=== PATIENT | female | born 1980 | race Caucasian/White ===

== ENCOUNTER → 2020-11-13 15:27 | Outpatient (CLI) | payer BC, SELFPAY ==
--- NOTE | ~2020-11-13 | MM_ITS ---
EXAMINATION: MM screening sabrina BI w lian HISTORY: Screening TECHNIQUE: Craniocaudal and mediolateral oblique 3-D tomosynthesis images were obtained and synthetic 2-D images were generated. CAD analysis was submitted and interpreted. COMPARISON: No prior mammogram is available for comparison at this institution. BREAST PARENCHYMAL COMPOSITION: There are scattered areas of fibroglandular density. FINDINGS: There is no evidence of suspicious mass, calcification, or architectural distortion to sugg est malignancy in either breast. There has been no suspicious interval change. IMPRESSION: 1. No mammographic evidence of malignancy. 2. Recommend routine screening mammography in one year. BI-RADS Category 1: Negative Reviewed, dictated and finalized at location A. COMPLIANCE OFFICER
== END ==
DX: Z12.31 Encounter for screening mammogram for malignant neoplasm of breast (principal)
CPT/HCPCS: 77063; 77067

== ENCOUNTER 2022-02-18 09:45 | Outpatient (CLI) | payer BC, SELFPAY ==
--- NOTE | 2022-02-18 11:00 | NEURO_ITS ---
Impression: # Complains of left lower extremity paresthesia. # Normal nerve conduction study except left peroneal polyphasic response. # No planter syndrome. # Normal nerve conduction study without evidence of fibs, chronic denervation potentials or myotonia. # Clinical correlation recommended; Question of higher involvement. Nerve Conduction Studies Anti Sensory Summary Table Stim Site NR Peak (ms) P-T Amp (?V) Site1 Site2 Delta-P (ms) Dist (cm) Irineo (m/s) Left Sup Fibular Anti Sensory (Ant Lat Mall) 14 cm 3.3 32.1 14 cm Ant Lat Mall 3.3 16.0 48 Left Sural Anti Sensory (Lat Mall) Calf 3.5 39.3 Calf Lat Mall 3.5 16.0 46 Motor Summary Table Stim Site NR Onset (ms) O-P Amp (mV) Site1 Site2 Delta-0 (ms) Dist (cm) Irineo (m/s) Left Lateral Plantar Motor (ADM) Med Mall 3.8 8.8 Left Peroneal Motor (Vastus Med) Ankle 3.6 3.6 Popit Ankle 8.2 37.0 45 Popit 11.8 1.8 Left Tibial Motor (Abd Villaseñor Brev) Ankle 3.9 6.5 Knee Ankle 8.2 40.0 49 Knee 12.1 6.0 F Wave Studies NR F-Lat (ms) L-R F-Lat (ms) Left Peroneal (Mrkrs) (EDB) 49.26 Left Tibial (Mrkrs) (Abd Hallucis) 48.20 EMG Side Muscle Nerve Root Ins Act Fibs Amp Dur Recrt Comment Left AntTibialis Dp Br Fibular L4-5 Nml Nml Nml Nml Nml Left Gastroc Tibial S1-2 Nml Nml Nml Nml Nml Left Fibularis Long Sup Br Fibular L5-S1 Nml Nml Nml Nml Nml Left Flex Dig Long Tibial L5-S2 Nml Nml Nml Nml Nml Left Ext Dig Brev Dp Br Fibular L5, S1 Nml Nml Nml Nml Nml Left QuadratusFem QuadFemoris L4-5, S1 Nml Nml Nml Nml Nml MTDD
== END 2022-02-18 09:46 | disposition home or self-care (01) ==
LOC: ANHNEURO 09:46
PROVIDERS: Visit Provider Nurse Practitioner Adult Health
DX: R20.2 Paresthesia of skin (principal)
CPT/HCPCS: 95886; 95909

== ENCOUNTER 2022-03-14 07:53 | Emergency (ER) | payer BC, SELFPAY ==
[2022-03-14] VITALS (9 sets, daily range): BP systolic 98–121; BP diastolic 72–90; PULSE 67–103; RESP 12–20; TEMP 36.4; O2SAT 95–100
--- NOTE | 2022-03-14 07:57 | ECG_ITS ---
Measurements Intervals [place] Rate: 87 P: 1 VT: 133 QRS: -12 QRSD: 86 T: 8 QT: 389 QTc: 470 Interpretive Statements SINUS RHYTHM DELAYED PRECORDIAL R/S TRANSITION BORDERLINE T WAVE ABNORMALITY- INFERIOR LEADS BORDERLINE ECG Electronically Signed On 03-14-2022 8:15:10 CDT by Mayur Hill D.O.
--- NOTE | 2022-03-14 08:06 | ED.DIZZY ---
HPI - Dizziness General Chief Complaint: Dizziness Stated Complaint: dizzy/lightheaded Time Seen by Provider: 03/14/22 07:54 History of Present Illness HPI Narrative: Patient is a 41-year-old female who presents ER with dizziness. Sudden onset this morning when she woke up. Worse with positional movements. No sweats or nausea or vomiting. Reports some tingling in her fingers. Reports she had something similar few weeks ago that did cause her to fall. Patient is recently postop from a cholecystectomy. No abdominal pain or fevers. No weakness in arm or leg. No slurred speech. Has not had any sinus congestion or sore throat or productive cough. No history of peripheral vertigo. Related Data Allergies Allergy/AdvReac Type Severity Reaction Status Date / Time No Known Allergies Allergy Verified 03/14/22 08:09 Review of Systems Review of Systems: All systems reviewed & are unremarkable except as noted in HPI and below Constitutional: Constitutional: Denies chills, Denies fever(s) and Denies weakness ENT: Reports dizziness, Denies nasal congestion and Denies sore throat Cardiovascular: Cardiovascular: Denies chest pain, Denies rapid heart rate and Denies radiating jaw, neck or arm pain Respiratory: Respiratory: Denies cough and Denies dyspnea Gastrointestinal: Gastrointestinal: Denies abdominal pain, Denies nausea and Denies vomiting Neurologic: Denies headache(s), Denies focal weakness and Denies numbness PMFSH Past Medical History Medical History (Updated 03/14/22 @ 10:53 by Roberto Hall MD) Healthy female adult Surgical History Surgical History (Updated 03/14/22 @ 10:52 by Roberto Hall MD) History of cholecystectomy Exam Narrative: GENERAL: Well-appearing, well-nourished, and in no acute distress. HEAD: Normocephalic, atraumatic. EYES: PERRL and EOMI. ENT: TMs normal bilaterally. CHEST: Clear to auscultation. No respiratory distress. HEART: Regular rate and rhythm. Normal peripheral pulses. ABDOMEN: Soft, nontender, nondistended, normal active bowel sounds. EXTREMITIES: Normal range of motion. No edema. SKIN: Warm, dry, no rash. NEURO: No focal deficits. No upper or lower extremity drift. Normal [id number] testing and finger-nose testing bilaterally. Alert and oriented x3. PSYCH: Normal mood and affect. Course Course Emergency Course: Feels improved with fluids and meclizine. Suspect peripheral vertigo. Discharge home. Vital Signs Vital signs: Vital Signs Temperature 97.5 F L 03/14/22 07:50 Pulse Rate 90 03/14/22 07:50 Respiratory Rate 13 03/14/22 07:50 Blood Pressure 114/89 03/14/22 07:50 Pulse Oximetry 100 03/14/22 07:50 Temperature 97.5 F L 03/14/22 07:50 Pulse Rate 67 03/14/22 09:46 Respiratory Rate 20 03/14/22 09:46 Blood Pressure 102/80 03/14/22 09:46 Pulse Oximetry 100 03/14/22 09:46 MDM - Dizziness Lab Data Result diagrams: 03/14/22 08:06 03/14/22 08:06 Labs: Lab Results 03/14/22 03/14/22 Range/Units 08:06 08:06 WBC 8.0 (4.5-10.0) K/mm3 RBC 4.55 (4.2-5.4) M/mm3 Hgb 13.9 (12.0-15.0) g/dL Hct 41.2 (37.0-47.0) % MCV 90.5 (80-100) fl MCH 30.5 (26-34) pg MCHC 33.7 (32-36) g/dl RDW 13.1 (11.5-14.5) % Plt Count 386 H (150-375) k/mm3 MPV 9.1 (7.4-10.4) fl Immature Gran % (Auto) 0.3 (0-0.5) % Neut % (Auto) 50.6 (45.5-73.1) % Lymph % (Auto) 35.7 (18.3-44.2) % [place] % (Auto) 9.6 H (2.6-8.5) % Eos % (Auto) 3.4 (0-4.4) % Baso % (Auto) 0.4 (0.2-1.2) % Lymph # (Auto) 2.85 (0.9-3.2) K/mm3 [place] # (Auto) 0.8 H (0.1-0.6) K/mm3 Eos # (Auto) 0.3 (0-0.3) K/mm3 Baso # (Auto) 0.0 (0.0-0.1) K/mm3 Abs Immat Gran (auto) 0.02 (0.00-0.031) K/mm3 Absolute Neuts (auto) 4.0 (1.3-6.7) K/mm3 Absolute Nucleated RBC 0.0 (0.0-0.012) K/mm3 Nucleated RBC % 0.0 (0.0-0.2) % Sodium 137 (137-145) mmol/L Potassium 3.4 (3.4-5
[2022-03-14] MEDS: Please add drug allergy info to patient profile. XX (08:10)
[2022-03-14] MEDS: SODIUM CHLORIDE 0.9% IV 1,000 ML 999 ML IV CONT (08:10)
[2022-03-14 08:11] LABS: Basophils Percent Auto 0.4 % (0.2-1.2); Eosinophils Absolute Auto 0.3 K/mm3 (0-0.3); Eosinophils Percent Auto 3.4 % (0-4.4); Hematocrit 41.2 % (37.0-47.0); Hemoglobin 13.9 g/dL (12.0-15.0); Immature Granulocyte Absolute 0.02 K/mm3 (0.00-0.031); Immature Granulocyte Percent A 0.3 % (0-0.5); Lymphocytes Absolute Auto 2.85 K/mm3 (0.9-3.2); Lymphocytes Percent Auto 35.7 % (18.3-44.2); Mean Corpuscular HGB Conc 33.7 g/dl (32-36); Mean Corpuscular Hemoglobin 30.5 pg (26-34); Mean Corpuscular Volume 90.5 fl (80-100); Mean Platelet Volume 9.1 fl (7.4-10.4); Monocytes Absolute Auto 0.8 K/mm3 (0.1-0.6); Monocytes Percent Auto 9.6 % (2.6-8.5); Neutrophils Percent Auto 50.6 % (45.5-73.1); Platelet Count Result 386 k/mm3 (150-375); Red Blood Count 4.55 M/mm3 (4.2-5.4); Red Cell Distribution Width 13.1 % (11.5-14.5)
[2022-03-14] MEDS: MECLIZINE HCL 25 MG TABLET PO (08:11)
[2022-03-14 08:23] LABS: Alanine Aminotransferase 55 U/L (6-35); Albumin Level 3.6 g/dL (3.5-5.1); Alkaline Phosphatase 141 U/L (38-126); Anion Gap 8 mmol/L (8-16); Aspartate Amino Transferase 22 U/L (14-36); Bilirubin,Total 0.5 mg/dL (0.2-1.3); Blood Urea Nitrogen 9 mg/dL (7-17); Calcium 8.9 mg/dL (8.4-10.2); Carbon Dioxide 23 mmol/L (22-30); Chloride 106 mmol/L (98-107); Estimated CRCL calculation 75 ml/min; Estimated Glomerular Filt Rate > 60; Glucose 71 mg/dL (65-110); Potassium 3.4 mmol/L (3.4-5.0); Sodium 137 mmol/L (137-145)
== END 2022-03-14 11:07 | disposition home or self-care (01) ==
PROVIDERS: Emergency Provider Emergency Medicine; PCP Nurse Practitioner Adult Health
DX: R42 Dizziness and giddiness (principal); R94.31 Abnormal electrocardiogram [ECG] [EKG]
CPT/HCPCS: 36415; 80053; 85025; 93005; 96360; 99284; A9270; J7030

== ENCOUNTER 2022-04-15 07:57 | Outpatient (CLI) | payer BC, SELFPAY ==
--- NOTE | 2022-04-15 | ECHO_ITS ---
Patient Info Name: Jennifer Burks Age: 41 years : 1980 Gender: Female Ht: 63 in Wt: 147 lbs BSA: 1.74 m2 HR: 82 bpm BP: 105 / 84 mmHg Heart Rhythm: Sinus Rhythm Technical Quality: Good Exam Date: 04/15/2022 8:27 AM Exam Location: [facility] Pulmonary Patient Status: Outpatient Admit Date: 04/15/2022 Staff Ordering Physician: Rob, Ijeoma BLAIR [employer] Specialist: Natalie Gerardo RDCS Attending Provider: CresencioIjeoma NP Exam Type: CA echo doppler color flow Study Info Indications I31.8 - Other specified diseases of pericardium Complete two-dimensional, color flow and Doppler transthoracic echocardiogram is performed. Summary 1. Complete two-dimensional, color flow and Doppler transthoracic echocardiogram is performed. 2. Normal LV size and wall thickness, normal LV systolic and diastolic function, ejection fraction 60-65%. Global longitudinal strain-19%. Normal RV size and systolic function; right ventricular moderator band-normal variant. No significant valvular abnormality. Trace TR. RVSP 36 mmHg. No significant pericardial effusion. Epicardial fat pad. No definite large and compressive pericardial cyst is seen. May consider cardiac CT or cardiac MRI if clinically warranted. Left Ventricle Left ventricular chamber dimension is normal. Left ventricular systolic function is normal, estimated at 60-65%. There is no increased left ventricular wall thickness. Left ventricular septal wall motion is normal. The left ventricular diastolic function is normal. Right Ventricle Right ventricular chamber dimension is normal. Right ventricular systolic function is normal. Left Atria Left atrial chamber dimension is normal. Right Atria Right atrial chamber dimension is normal. Aortic Valve The aortic valve is trileaflet. There is no aortic valve sclerosis. There is no aortic valve stenosis. There is no aortic valve regurgitation. Pulmonic Valve The pulmonic valve is normal. There is no pulmonic regurgitation. Mitral Valve The mitral valve has normal leaflets. There is no mitral valve regurgitation. Tricuspid Valve The tricuspid valve leaflets are normal. There is trace tricuspid valve regurgitation. No pulmonary hypertension, estimated pulmonary arterial systolic pressure is 36 mmHg. Pericardium/Pleural The pericardium appears epicardial fat pad. Inferior Vena Cava Normal inferior vena cava with >50% collapse upon inspiration consistent with Empty right atrial pressure, 10 mmHg. Aorta The aortic root size at the sinus of Valsalva is normal. The prox ascending aorta size is normal. Left Ventricular Outflow Tract Name Value Normal LVOT 2D LVOT Diameter 2.0 cm LVOT Doppler LVOT Peak Gradient 3 mmHg LVOT Mean Gradient 2 mmHg LVOT VTI 17 cm LVOT VTI/AV VTI Ratio 0.8 LVOT Stroke Volume 52 ml LVOT CO 4.4 l/min LVOT CI 2.5 l/min/m2 Pulmonic Valve -------
== END 2022-04-15 07:58 | disposition home or self-care (01) ==
LOC: ANHCARD 07:59
PROVIDERS: PCP Nurse Practitioner Adult Health; Visit Provider Nurse Practitioner Adult Health
DX: I31.8 Other specified diseases of pericardium (principal)
CPT/HCPCS: 93306

== ENCOUNTER 2022-04-18 14:43 | Emergency (ER) | payer BC, SELFPAY ==
[2022-04-18 14:49] VITALS: BP 116/82; PULSE 79; RESP 16; TEMP 36.9; O2SAT 100
--- NOTE | 2022-04-18 15:00 | ED.EXTPRO ---
HPI - Extremity Problem General Chief complaint: Ear Stated complaint: left ear discomfort Time Seen by Provider: 04/18/22 14:55 Source: patient Mode of arrival: ambulatory Limitations: no limitations History of Present Illness HPI Narrative: Patient presents today complaining of occasional left ear discomfort. She was diagnosed with swimmer's ear 8 days ago and given a prescription for Ciprodex, which she has been using twice a day. States she does not feel like the eardrops are penetrating all the way into her ear canal and continues to have some pressure. She has been applying warm compresses as well as using the drops. Related Data Home Medications Medication Instructions Recorded Confirmed ciprofloxacin 0.3 %-dexamethasone 2 drp LEFT EAR DAILY 04/18/22 04/18/22 0.1 % ear drops,suspension fluoxetine 20 mg capsule 20 cap PO DAILY 04/18/22 04/18/22 phentermine 37.5 mg tablet 37.5 tablet PO DAILY 04/18/22 04/18/22 semaglutide (weight loss) 2.4 2.4 ea subcut WEEKLY 04/18/22 04/18/22 mg/0.75 mL subcutaneous pen injector (Wegovy) Allergies Allergy/AdvReac Type Severity Reaction Status Date / Time No Known Allergies Allergy Verified 04/18/22 15:03 Review of Systems Review of Systems: CONSTITUTIONAL: Denies body aches, fever, chills, or sweats. EYES: Denies visual changes, redness, or discharge. ENT: Denies rhinorrhea, congestion, sore throat. + Left ear pressure CARDIOVASCULAR: Denies chest pain, palpitations, or edema. RESPIRATORY: Denies cough or dyspnea. GASTROINTESTINAL: Denies abdominal pain, nausea, vomiting, or diarrhea. GENITOURINARY: Denies dysuria or hematuria. SKIN: Denies rash, itching, or wounds. MUSCULOSKELETAL: Denies back pain, joint pain, or myalgia. NEUROLOGIC: Denies headache, numbness, tingling, or weakness. PSYCH: Denies depression or anxiety. [facility] Past Medical History Medical History Healthy female adult Surgical History Surgical History History of cholecystectomy Comments At time of signature, I have reviewed and agree with nursing past medical, surgical, social and family history unless otherwise noted. Please see nursing chart for further information. There is no relevant family history pertinent to the presenting complaint Exam Narrative: GENERAL: Well-appearing, well-nourished, and in no acute distress. HEAD: Normocephalic, atraumatic. EYES: EOMI. No redness or drainage. Conjunctivae normal. ENT: Mucous membranes pink and moist. TMs normal bilaterally. Bilateral ear canals are normal. No movement tenderness bilaterally. No tragal tenderness bilaterally. NECK: Normal AROM. CHEST: No respiratory distress. EXTREMITIES: Normal range of motion. No edema. SKIN: Warm, dry, no rash. Capillary refill normal. Normal skin turgor. NEURO: No focal deficits. Alert and oriented x3. Gait steady. PSYCH: Normal affect. No signs of depression or anxiety. Course Course Level of Care: Express Care Visit Vital Signs Vital signs: Vital Signs Temperature 98.4 F 04/18/22 14:49 Pulse Rate 79 04/18/22 14:49 Respiratory Rate 16 04/18/22 14:49 Blood Pressure 116/82 04/18/22 14:49 Pulse Oximetry 100 04/18/22 14:49 Oxygen Delivery Room Air 04/18/22 14:49 Temperature 98.4 F 04/18/22 14:49 Pulse Rate 79 04/18/22 14:49 Respiratory Rate 16 04/18/22 14:49 Blood Pressure 116/82 04/18/22 14:49 Pulse Oximetry 100 04/18/22 14:49 Oxygen Delivery Room Air 04/18/22 14:49 Reviewed. Pt has been instructed to follow up with her PCP regarding her elevated blood pressure today. MDM - Extremity (Nontraumatic) Differential Diagnosis Differential diagnosis: Likely other (Otitis media, otitis externa, ruptured TM, serous otitis) Critical Care Time Critical Care Time Critical Care Time: No Discharge Plan Discharge Clinical
== END 2022-04-18 15:04 | disposition home or self-care (01) ==
PROVIDERS: Emergency Provider Nurse Practitioner; PCP Nurse Practitioner Adult Health
DX: Z71.1 Person with feared health complaint in whom no diagnosis is made (principal); F32.A Depression, unspecified
CPT/HCPCS: 99211; G0463

== ENCOUNTER 2022-08-02 10:54 | Emergency (ER) | payer BC, SELFPAY ==
--- NOTE | 2022-08-02 10:59 | ED.SKABFB ---
HPI - Skin/Abscess/Foreign Bdy General Chief complaint: Skin/Abscess/Foreign Body Stated complaint: rash on hands Time Seen by Provider: 08/02/22 11:26 Source: patient and RN notes reviewed Mode of arrival: ambulatory Limitations: no limitations History of Present Illness HPI narrative: 42-year-old female presents with concern for ongoing skin issues. She reports several issues she is seen virtual doctor for over the last several months. She reports she has intermittent relief of symptoms, then a new symptom will pop up that seems unrelated. She reports she most recently had a Medrol Dosepak for blisters around her fingernails and they improved while on the medicine, when she was finished with it they returned. She reports they are itchy. She also reports patches of redness on her skin that she recently was prescribed for skin fungus, she just started using that yesterday. She reports over the past several months she has been on four rounds of steroids. MD complaint: rash Related Data Home Medications Medication Instructions Recorded Confirmed fluoxetine 20 mg capsule 20 cap PO DAILY 04/18/22 04/18/22 semaglutide (weight loss) 2.4 2.4 ea subcut WEEKLY 04/18/22 04/18/22 mg/0.75 mL subcutaneous pen injector (Wegovy) Luvox 08/02/22 aripiprazole 2 mg tablet mg 08/02/22 hydroxyzine HCl 25 mg tablet mg 08/02/22 trazodone 50 mg tablet mg 08/02/22 Allergies Allergy/AdvReac Type Severity Reaction Status Date / Time No Known Allergies Allergy Verified 04/18/22 15:03 Review of Systems Review of Systems: CONSTITUTIONAL: Denies malaise, chills, sweats, or fever. EYES: Denies redness, or discharge. ENT: Denies rhinorrhea, congestion, swollen lips, swollen tongue CARDIOVASCULAR: Denies chest pain, palpitations, or edema. RESPIRATORY: Denies cough or dyspnea. GASTROINTESTINAL: Denies abdominal pain, nausea, vomiting SKIN: Reports itchy patches of rash, blisters around her fingernails that are itchy MUSCULOSKELETAL: Denies joint pain or myalgia. NEUROLOGIC: Denies headache. All systems reviewed & are unremarkable except as noted in HPI and below PMFSH Past Medical History Medical History Healthy female adult Surgical History Surgical History (Reviewed 04/18/22 @ 15:01 by Gloria Osborne, [facility], ) History of cholecystectomy Comments At time of signature, agree with nursing past medical, surgical, social and family history. There is no relevant family history pertinent to the presenting complaint Exam Narrative: GENERAL: Well-appearing, well-nourished, and in no acute distress. HEAD: Normocephalic, atraumatic. EYES: PERRLA, conjunctivae clear, and EOMI. ENT: Mucous membranes moist. Oropharynx without edema, erythema or lesions. NECK: Supple. No lymphadenopathy CHEST: Clear to auscultation. No respiratory distress. HEART: Regular rate and rhythm. SKIN: Warm, dry. Annular erythematous patches consistent with tinea noted to the arms, torso, legs. Small skin colored papules noted around the fingernails of all 10 digits. NEURO: Alert and oriented x3. PSYCH: Normal mood and affect Course Course Emergency Course: Discussed with patient that she should see her primary care provider since she has been treated by several different providers on telehealth, and she needs further evaluation and to her ongoing skin problems. Patient is agreeable. Advised patient that she needs to stop the hydroxyzine while on the Diflucan, she is agreeable. Patient is aware of diagnosis, understands and agrees to treatment plan. Anticipatory guidance given. Patient agrees to follow-up as directed and is aware of reasons to seek care at the emergency department. Portions of this record may have been created with voice recognition software Level of Care: Express Care Visit Vital Signs Vital signs: Vital Signs Temperature 98.4 F 08/02/22 11:06 Pulse Rate 105 H 10
[2022-08-02 11:06] VITALS: BP 123/89; PULSE 105; RESP 16; TEMP 36.9; O2SAT 98
== END 2022-08-02 11:44 | disposition home or self-care (01) ==
PROVIDERS: Emergency Provider Nurse Practitioner; PCP Nurse Practitioner Adult Health
DX: B35.9 Dermatophytosis, unspecified (principal)
CPT/HCPCS: 99213; G0463

== ENCOUNTER → 2023-01-27 11:11 | Outpatient (CLI) | payer BC, SELFPAY ==
--- NOTE | ~2023-01-27 | XR_ITS ---
Clinical Indication: Cough PA and lateral views of the chest: Comparison: None Findings: The lungs are clear, without evidence of focal consolidation or pleural effusion. Cardiome diastinal silhouette is within normal limits. Bones and soft tissues are unremarkable. Impression: Normal chest. Reviewed, dictated and finalized at location . Impression: Normal chest.
== END ==
PROVIDERS: PCP Family Medicine; Visit Provider Nurse Practitioner Family
DX: R05.9 Cough, unspecified (principal); R53.83 Other fatigue
CPT/HCPCS: 71046